=== PATIENT | male | born 1985 | race Caucasian/White ===

== ENCOUNTER → 2018-11-05 | Outpatient (CLI) | payer BC ==
[2018-11-05 12:42] LABS: ALANINE AMINOTRANSFERASE 36 U/L (0-55); ALBUMIN 4.5 GM/DL (3.2-4.5); ALKALINE PHOSPHATASE 96 U/L (40-136); BILIRUBIN,TOTAL 0.8 MG/DL (0.1-1.0); BUN/CREATININE RATIO 8; CALCIUM 9.7 MG/DL (8.5-10.1); CARBON DIOXIDE 22 MMOL/L (21-32); CHLORIDE 103 MMOL/L (98-107); CREATININE SERUM 1.06 MG/DL (0.60-1.30); GFR ESTIMATED > 60; GLUCOSE 103 MG/DL (70-105); POTASSIUM 3.5 MMOL/L (3.6-5.0); SODIUM 139 MMOL/L (135-145); TOTAL PROTEIN 7.8 GM/DL (6.4-8.2)
[2018-11-05 13:07] LABS: HEMOGLOBIN 16.5 G/DL (13.3-17.7); MEAN CORPUSCULAR HEMOGLOBIN 30 PG (25-34); WHITE BLOOD COUNT 10.2 10^3/uL (4.3-11.0)
[2018-11-05 13:08] LABS: BAND NEUTROPHILS 16 %; BASOPHILS % (AUTO) 0 % (0-10); BASOPHILS % (MANUAL) 1 %; EOSINOPHILS # (AUTO) 0.5 10^3/uL (0.0-0.3); EOSINOPHILS % (AUTO) 1 % (0-10); EOSINOPHILS % (MANUAL) 4 %; HEMATOCRIT 46 % (40-54); LYMPHOCYTES # (AUTO) 1.5 X 10^3 (1.0-4.0); LYMPHOCYTES % (AUTO) 15 % (12-44); LYMPHOCYTES % (MANUAL) 17 %; MEAN CORPUSCULAR HGB CONC 36 G/DL (32-36); MEAN CORPUSCULAR VOLUME 84 FL (80-99); MEAN PLATELET VOLUME 10.6 FL (7.4-10.4); MONOCYTES # (AUTO) 0.8 X 10^3 (0.0-1.0); MONOCYTES % (AUTO) 8 % (0-12); MONOCYTES % (MANUAL) 6 %; NEUTROPHILS # (AUTO) 7.4 X 10^3 (1.8-7.8); NEUTROPHILS % (AUTO) 73 % (42-75); NEUTROPHILS % (MANUAL) 56 %; PLATELET COUNT 288 10^3/uL (130-400); RBC MORPH NORMAL; RED CELL DISTRIBUTION WIDTH 13.4 % (10.0-14.5)
== END ==
LOC: LAB FS 11:48
PROVIDERS: ATTEND Family Medicine
DX: R10.84 Generalized abdominal pain (principal)
CPT/HCPCS: 36415; 80053; 85007; 85027

== ENCOUNTER → 2018-11-06 | Outpatient (CLI) | payer BC ==
[~2018-11-06] MED LIST: CATHETER FLUSH 10 ML SYR IV PRN; HOLD METFORMIN - RECEIVED CONTRAST 20 ML VIAL IV SCH; IOHEXOL 350 MG/ML 100 ML (OMNIPAQUE 350) VIAL IV ONE; NS 100 ML (IVPB) BAG IV ONE
--- NOTE | 2018-11-06 10:30 | Diagnostic Imaging Report ---
PROCEDURE: CT abdomen and pelvis with contrast. TECHNIQUE: Multiple contiguous axial images were obtained through the abdomen and pelvis after administration of intravenous contrast. Auto Exposure Controls were utilized during the CT exam to meet ALARA standards for radiation dose reduction. INDICATION: Abdominal pain and diarrhea for 8 days. No prior studies are available for comparison. The lung bases are clear. No discrete liver mass is identified. The gallbladder is unremarkable. No biliary ductal dilatation is seen. The pancreas is unremarkable. The spleen is enlarged at 16.8 cm. No adrenal mass is identified. Low density in the upper pole, too small to characterize. No definite calculi or hydronephrosis is seen. Aorta is non-aneurysmal. No central retroperitoneal lymphadenopathy seen. There are mildly prominent lymph nodes in the central mesentery, the largest solitary node measuring 16 mm x 9 mm. The bowel loops are normal in caliber. No definite obstruction is seen. Appendix is visualized and unremarkable. There is some fluid throughout the colon consistent with patient's clinical history of diarrhea. No inguinal or iliac lymphadenopathy is seen. IMPRESSION: 1. Splenomegaly. 2. Mildly prominent mesenteric lymphadenopathy, perhaps on the basis of mesenteric adenitis. 3. Mild fluid-filled colon consistent with diarrhea. No definite bowel obstruction is seen. Dictated by: Dictated on workstation # [id number]
== END ==
LOC: RAD FS 08:55
PROVIDERS: ATTEND Family Medicine
DX: R59.0 Localized enlarged lymph nodes (principal); R11.2 Nausea with vomiting, unspecified; R19.7 Diarrhea, unspecified; R10.84 Generalized abdominal pain; R16.1 Splenomegaly, not elsewhere classified
CPT/HCPCS: 74177